=== PATIENT | male | born 2000 | race Caucasian/White ===

== ENCOUNTER 2023-04-28 09:20 | Emergency (ER) | payer OTHER, SELFPAY ==
--- NOTE | ~2023-04-28 | XR_ITS ---
EXAMINATION: XR CHEST CLINICAL INFORMATION: Near syncope looking for rib notching COMPARISON: None available. TECHNIQUE: Frontal view of the chest was obtained. FINDINGS: No significant abnormality is noted involving the heart, lungs, mediastinum, bony thorax or soft tissues. XR/XR chest 1V IMPRESSION: Unremarkable chest examination.
--- NOTE | ~2023-04-28 | CT_ITS ---
EXAMINATION: CT HEAD WITHOUT CONTRAST CLINICAL INFORMATION: Headache, confusion COMPARISON: None available. TECHNIQUE: Contiguous axial imaging was performed from the skull base to vertex without intravenous administration of contrast. This CT examination was performed using dose optimization techniques as appropriate, variously including the following: *Automated exposure control *Adjustment of mA and/or kV according to patient size (this includes techniques or standardized protocols for targeted exams where dose is matched to indication/reason for exam; i.e. extremities or head) *Use of iterative reconstruction technique DLP: 607 mGy-cm FINDINGS: The ventricles and sulci are normal in size and configuration. No acute hemorrhage, mass effect or shift is evident. Michael-white differentiation is maintained. In the posterior fossa, the brainstem, cerebellum and fourth ventricle image normally. The orbits and calvarium are intact. The paranasal sinuses and mastoid air cells are well pneumatized and clear. CT/CT head/brain wo IV con IMPRESSION: 1. Unremarkable noncontrast brain CT. No acute hemorrhage, mass effect or shift.
[2023-04-28 10:06] VITALS: BP 148/90; PULSE 94; RESP 16; TEMP 36.9; O2SAT 99; BMI 24.1
--- NOTE | 2023-04-28 10:14 | PC.NURSE ---
addendum to triage note; PERRL, no weakness noted, no facial droop. Speech clear.
--- NOTE | 2023-04-28 13:13 | ED.HA ---
HPI - Headache General Chief Complaint: Headache Stated Complaint: Headache/Dizziness/Forgetting things Time Seen by Provider: 04/28/23 13:04 Source: patient Mode of arrival: ambulatory Limitations: no limitations History of Present Illness HPI Narrative: 23-year-old male presenting with diffuse headache that is mild in nature, and earlier today had an episode of lightheadedness/dizziness followed by confusion, this is since resolved now just has a headache. Reports he had a similar episode like this back in February while he was at work it started with dizziness, lightheadedness then he got blurred vision and a headache. Today he reports he had slight blurred vision however his vision is back to normal. He reports dizziness, visual disturbances and confusion have resolved however still having mild diffuse headache (worse w/ movement). Denies weakness, chest pain, shortness of breath, fevers, chills, neck pain, nausea, vomiting, abdominal pain. Patient denies drugs/alcohol. NIH stroke scale 0. Related Data Previous Rx's Medication Instructions Recorded amlodipine 5 mg tablet 5 mg PO BID 30 days #60 tabs 04/28/23 Allergies Allergy/AdvReac Type Severity Reaction Status Date / Time nut - unspecified Allergy Anaphylaxis Verified 04/28/23 10:05 Review of Systems Review of Systems: Constitutional : No Weight loss, No Fever, No Chills, No Fatigue, No Malaise ENT/Mouth : No sore throat, No Rhinorrhea Eyes: No Eye Pain, No Swelling, No Redness Cardiovascular : No Chest Pain, No SOB, No Dyspnea on Exertion, No Orthopnea, No Edema, No Palpitations Respiratory : No Cough, No Sputum, No Wheezing Gastrointestinal : No Nausea, No Vomiting, No Diarrhea, No Constipation, No abdominal Pain, No Hematochezia, No Melena Genitourinary : No Dysuria, No Urinary Frequency, No Hematuria, Musculoskeletal : No joint pain, No Myalgias, No Joint Swelling Skin : No Skin Lesions, No rash Neuro : No Weakness, No Numbness, No Dizziness, + Headache Psych : No Anxiety/Panic, No Depression All other systems reviewed and are negative Yes all other systems are reviewed and are negative [facility] Past Medical History Attestation statement: The following information was validated with the patient. Source: old records reviewed and nursing notes reviewed Onset Date is defined in the Problem List Problems that require an onset date and time if occurred within 24 hrs of arrival to the ED Aortic Dissection and Rupture; Neurologic impairment; Cardiopulmonary Arrest; Endotracheal Intubation; Insertion or Replacement of Mechanical Circulatory Assist Device Social History Social History Smoked in Last 30 Days: No Use of substances other than those prescribed or required for medical reasons: No Advance Directives: No Physical Exam Vital Signs: Vital Signs: Last Vital Signs Temp 98.5 F 04/28/23 10:06 Pulse 94 04/28/23 10:06 Resp 16 04/28/23 10:06 BP 148/90 H 04/28/23 10:06 Pulse Ox 99 04/28/23 10:06 BMI result Body Mass Index 24.1 vss Appearance: Alert.? Oriented X3.? No acute distress.? Head: Normocephalic, atraumatic, no step-offs or deformities Eyes: Pupils equal, round and reactive to light.? Neck: Normal inspection.? Neck supple.? CVS: Normal heart rate and rhythm.? Pulses normal.? Respiratory: No respiratory distress.? Breath sounds normal.? Abdomen: Soft and nontender.? Skin: Skin warm and dry.? Normal skin color.? Normal skin turgor.? Extremities: No lower extremity edema.? No calf ttp. 5/5 strength to bilateral upper and lower extremities Back: No midline tenderness, no C-spine tenderness, full range of motion, no CVA tenderness bilaterally Neuro: Oriented X 3.? No motor deficit.? No sensory deficit. CN 2-12 intact . Normal hheaks-[id number], hgzh-tr-ckef, negative Romberg and pronator drift. NIHSS-0 Course Reevaluation(s) Reevaluation #1: CBC no acute findings. Chemistry in no acute findings requiring intervention. Troponin negative, EKG nonischemic it is showing an incomplete right bundle-branch block initially my attending was concerned this could be [facility], reach out to Cardiology, unlikely [facility] or [place]. CT head unremarkable Cardiology Dr. De Anda came down to evaluate patient he thinks that his symptoms are likely secondary to uncontrolled hypertension patient was recently started on 5 mg of amlodipine in his blood pressure remains high, he states he has had hypertension since the age of [address]. Dr[address] De Anda added aldostrone and renin levels to be done . He would like patient have an outpatient echo done, no need for hospital admission at this time he states. He would also like patient to start taking amlodipine 5 mg p.o. twice a day. Instead of once a day. Requested a cxr to be done- ordered. He checked femoral and radial pulses which were equal, unlikely coarctation of the aorta. Time: 15:17 Reevaluation #2: CXR unremarkable . Patient feeling well, asymptomatic. Would like to go home. Cardiology did not recommend keeping the patient in the hospital stated unlikely cardiac, good to be discharged home. Cardiology wants him to have an outpatient echo will give him cardiology's information. I also discussed this case with my attending Dr. Newsome who agrees patient to be discharged home. Educated patient on diagnosis and treatment plan, answered all question, patient verbalizes understanding. At this time patient will be discharged home, advised to return with new or worsening symptoms. Educated on worrisome signs and symptoms and when to return. At this time I feel comfortable discharge home. Time: 16:51 Medical Decision Making Medical Decision Making MDM Narrative: 23 yo m presents w/ episode of confusion, blurred vision which has resolved and now has a headache. HX of similar episode in the past PE benign NIHSS-0 This is likely headache versus migraine vs near syncope. Unlikely intracranial hemorrhage, stroke, posterior stroke, subarachnoid hemorrhage, ruptured aneurysm. No signs of meningitis, encephalitis, infectious origin. I do not suspect metabolic derangements. Plan at this time orthostatic vital signs, head CT. Differential Diagnosis Differential Diagnoses: The differential diagnosis associated with the presentation includes This is likely headache versus migraine vs near syncope. Unlikely intracranial hemorrhage, stroke, posterior stroke, subarachnoid hemorrhage, ruptured aneurysm. No signs of meningitis, encephalitis, infectious origin. I do not suspect metabolic derangements. Admission/Observation Consideration of admission/observation: Escalation of care including admission/observation considered Unlikely Lab Data 04/28/23 14:12 04/28/23 14:12 Labs: Lab Results 04/28/23 Range/Units 14:12 WBC 10.0 (4.8-10.8) X10*3/uL RBC 5.95 H (4.60-5.80) X10*6/uL Hgb 17.1 (14.0-18.0) g/dl Hct 49.6 (42.0-52.0) % MCV 83.4 (80.0-98.0) fL MCH 28.7 (27.0-33.0) pg MCHC 34.5 (31.0-36.0) g/dl RDW 12.9 (11.0-16.0) % Plt Count 284 (160-400) X10*3/uL MPV 10.8 (9.4-12.4) fL Immature Gran % (Auto) 0.2 (0.0-0.4) % Neut % (Auto) 61.8 (45-73) % Lymph % (Auto) 29.5 (20-40) % [place] % (Auto) 5.1 (2-11) % Eos % (Auto) 2.8 (0-4) % Baso % (Auto) 0.6 (0-2) % Lymph # (Auto) 2.9 (1.2-4.9) X10*3/uL [place] # (Auto) 0.5 (0.1-1.2) X10*3/uL Eos # (Auto) 0.3 (0.0-0.4) X10*3/uL Baso # (Auto) 0.1 (0.0-0.2) X10*3/uL Abs Immat Gran (auto) 0.02 (0.00-0.03) X10*3/uL Absolute Neuts (auto) 6.2 (2.0-8.3) x10*3/uL Absolute Nucleated RBC 0.000 (0.0-0.012) X10*3/uL Nucleated RBC % (auto) 0.0 (0.0-0.2) /100WBC PT 13.4 H (11.1-13.3) SEC INR 1.1 (0.9-1.1) Sodium 141 (135-145) mmol/L Potassium 3.3 (3.3-5.1) mmol/L Chloride 104 (96-108) mmol/L Carbon Dioxide 25 (22-29) mmol/L Anion Gap 15 (12-20) BUN 11 (9-16) mg/dL Creatinine 1.09 (0.5-1.4) mg/dL Estim Creat Clear Calc 114.6 Estimated GFR > 60 Random Glucose 100 (60-115) mg/dL Calcium 9.7 (8.4-10.2) mg/dL Magnesium 2.2 (1.6-2.6) mg/dL Total Bilirubin 0.7 (0.0-1.0) mg/dL AST 23 (5-37) U/L ALT 24 (0-40) U/L Alkaline Phosphatase 73 (39-117) U/L Troponin I High Sens < 2.7 (<3.5-35.0) ng/L Total Protein 8.2 H (6.5-8.0) g/dL Albumin 4.9 (3.5-5.0) g/dL Independent Interpretation I performed an independent interpretation of an: EKG and CT Scan Radiology Impression Discussion of test interpretation with radiology: I have reviewed the radiologist's reading. Discharge Plan Discharge Clinical Impression: Headache, Hypertension, Dizziness Patient Disposition: Home, Self-Care Instructions: Acute Headache (ED) Additional Instructions: Take your medications as prescribed. If you were prescribed antibiotics today, it is important that you take your medication to their entirety, do not skip any doses, do not finish them early. Follow-up with your primary care provider this week. Return to the emergency department with new or worsening symptoms. Such as fevers, chills, chest pain, shortness of breath, nausea, vomiting, dizziness, headache, vision changes, lethargy In case of emergency call 911 ' Take your amlodipine 5 mg now twice a day. New script sent into the pharmacy. Follow up with cardiology you will need an echo cardiogram Return with ANY new or worsening symptoms Prescriptions: New amlodipine 5 mg tablet 5 mg PO BID 30 Days Qty: 60 0RF Referrals: Willy Lowe MD [Primary Care Provider] - 2 days Maksim De Anda MD [Physician] - 1 day Stand Alone Forms: Work/School Release
--- NOTE | 2023-04-28 13:23 | ECG_ITS ---
Test Reason : DIZINESS Blood Pressure : / mmHG Vent. Rate : 073 BPM Atrial Rate : 073 BPM P-R Int : 140 ms QRS Dur : 112 ms QT Int : 376 ms P-R-T Axes : 061 057 057 degrees QTc Int : 414 ms Normal sinus rhythm with sinus arrhythmia Possible Left atrial enlargement Incomplete right bundle branch block Borderline ECG No previous ECGs available Referred By: Ti Lopez Electronically Signed By:Maksim De nAda
--- NOTE | 2023-04-28 13:34 | PC.NURSE ---
pt to CT at this time.
[2023-04-28 14:18] LABS: MANUAL DIFF FLAG NO
[2023-04-28 14:20] LABS: Basophils Absolute Auto 0.1 X10*3/uL (0.0-0.2); Basophils Percent Auto 0.6 % (0-2); Eosinophils Absolute Auto 0.3 X10*3/uL (0.0-0.4); Eosinophils Percent Auto 2.8 % (0-4); Hematocrit 49.6 % (42.0-52.0); Hemoglobin 17.1 g/dl (14.0-18.0); Imm Gran Abs Auto 0.02 X10*3/uL (0.00-0.03); Imm Gran Pct Auto 0.2 % (0.0-0.4); Lymphocytes Absolute Auto 2.9 X10*3/uL (1.2-4.9); Lymphocytes Percent Auto 29.5 % (20-40); Mean Corpuscular HGB Conc 34.5 g/dl (31.0-36.0); Mean Corpuscular Hemoglobin 28.7 pg (27.0-33.0); Mean Corpuscular Volume 83.4 fL (80.0-98.0); Mean Platelet Volume 10.8 fL (9.4-12.4); Monocytes Absolute Auto 0.5 X10*3/uL (0.1-1.2); Monocytes Percent Auto 5.1 % (2-11); Neutrophils Absolute Auto 6.2 x10*3/uL (2.0-8.3); Neutrophils Percent Auto 61.8 % (45-73); Platelet Count 284 X10*3/uL (160-400); Red Blood Count 5.95 X10*6/uL (4.60-5.80); Red Cell Distribution Width 12.9 % (11.0-16.0)
[2023-04-28 14:28] LABS: INTERNATIONAL NORM RATIO 1.1 (0.9-1.1); Prothrombin Time 13.4 SEC (11.1-13.3)
[2023-04-28 14:34] LABS: Alanine Aminotransferase 24 U/L (0-40); Albumin Level 4.9 g/dL (3.5-5.0); Alkaline Phosphatase 73 U/L (39-117); Anion Gap 15 (12-20); Aspartate Amino Transferase 23 U/L (5-37); Bilirubin Total 0.7 mg/dL (0.0-1.0); Blood Urea Nitrogen 11 mg/dL (9-16); Calcium 9.7 mg/dL (8.4-10.2); Carbon Dioxide 25 mmol/L (22-29); Chloride 104 mmol/L (96-108); Creatinine Clr Calc Pharmacy 114.6; Estimated Glomerular Filt Rate > 60; Glucose Random 100 mg/dL (60-115); Magnesium 2.2 mg/dL (1.6-2.6); Potassium 3.3 mmol/L (3.3-5.1); Sodium 141 mmol/L (135-145); Total Protein 8.2 g/dL (6.5-8.0)
[2023-04-28 14:43] LABS: Troponin-I High Sensitivity < 2.7 ng/L (<3.5-35.0)
--- NOTE | 2023-04-28 14:48 | PM.CNCAR ---
History of Present Illness History of Present Illness Date of Service: 04/28/23 Requesting physician: Ti Lopez Chief complaint: Headache/Dizziness/Forgetting things Narrative: 23-year-old gentleman who we have been asked to see for ? Brugada EKG changes. He has history of hypertension. He is saying that he has been hypertensive for quite some time and has been taking amlodipine. He is saying hypertension on in his family along with heart disease. He has been experiencing episodes of headache, dizziness and blurry vision over the last few days. He had 1st episode approximately 5 days ago while at work. 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 He is saying he drinks a lot of water and hydrate himself. He said while at work he started feeling dizzy which he describes as if his vision was blurry. He did not have any blacking out episode or true syncope. He started having a diffuse headache after that and was unable to recall names of his colleagues. He said these symptoms improved till today at home when he started feeling similar symptoms with the exception of forgetfulness. He checked his blood pressure and it was 133/70 by his report. He came to the ER for further assessment. His EKG was performed which showed incomplete right bundle-branch block with some changes suggestive of type 3 Brugada pattern. He said occasionally feels palpitations but has never had palpitations and dizziness at the same time. [facility] Social History Social History Smoked in Last 30 Days: No Use of substances other than those prescribed or required for medical reasons: No Advance Directives: No Meds Allergies Allergy/AdvReac Type Severity Reaction Status Date / Time nut - unspecified Allergy Anaphylaxis Verified 04/28/23 10:05 Physical Exam Vital Signs: Vital Signs: Last Vital Signs Temp 98.5 F 04/28/23 10:06 Pulse 94 04/28/23 10:06 Resp 16 04/28/23 10:06 BP 148/90 H 04/28/23 10:06 Pulse Ox 99 04/28/23 10:06 BMI result Body Mass Index 24.1 GENERAL APPEARANCE: in no acute distress, pleasant. NECK: no carotid bruit, no jugular venous distention. SKIN: no suspicious lesions, warm and dry. HEART: no murmurs, regular rate and rhythm. LUNGS: clear to auscultation bilaterally. ABDOMEN: soft, nontender. EXTREMITIES: no edema. PERIPHERAL PULSES: equal. NEUROLOGIC: No gross deficits, AAO X 3 Objective Labs and Meds 04/28/23 14:12 04/28/23 14:12 Lab results: Laboratory Results - last 24 hr 04/28/23 14:12 WBC 10.0 RBC 5.95 H Hgb 17.1 Hct 49.6 MCV 83.4 MCH 28.7 MCHC 34.5 RDW 12.9 Plt Count 284 MPV 10.8 Immature Gran % (Auto) 0.2 Neut % (Auto) 61.8 Lymph % (Auto) 29.5 [place] % (Auto) 5.1 Eos % (Auto) 2.8 Baso % (Auto) 0.6 Lymph # (Auto) 2.9 [place] # (Auto) 0.5 Eos # (Auto) 0.3 Baso # (Auto) 0.1 Abs Immat Gran (auto) 0.02 Absolute Neuts (auto) 6.2 Absolute Nucleated RBC 0.000 Nucleated RBC % (auto) 0.0 PT 13.4 H INR 1.1 Sodium 141 Potassium 3.3 Chloride 104 Carbon Dioxide 25 Anion Gap 15 BUN 11 Creatinine 1.09 Estim Creat Clear Calc 114.6 Estimated GFR > 60 Random Glucose 100 Calcium 9.7 Magnesium 2.2 Total Bilirubin 0.7 AST 23 ALT 24 Alkaline Phosphatase 73 Troponin I High Sens < 2.7 Total Protein 8.2 H Albumin 4.9 Imaging Radiologist's impression: Impressions Head CT 04/28/23 13:43 IMPRESSION: 1. Unremarkable noncontrast brain CT. No acute hemorrhage, mass effect or shift. Assessment and Plan (1) Headache: Status: Acute (2) Essential hypertension: Status: Acute Plan Pleasant 23-year-old gentleman presenting with dizziness, blurred vision and headache. His blood pressure is 148/90. He has known history of hypertension for long time. He is saying that he has family history of hypertension but still developed hypertension at a young age which warrants workup for secondary hypertension. I think he is blurring of vision and headache can be related to hypertension although he is not showing significantly elevated blood pressures with us currently. I do not believe that he has Brugada syndrome and his EKG changes are suggestive but not classic. I would recommend doing an echocardiogram as outpatient. Check a chest x-ray to look for changes like rib notching seen with coarctation. If blood pressure is elevated on current dose any needs titration of his blood pressure medications. Thank you for allowing me to participate in the care of your patient. Please feel free to contact me if you have any questions. Procedures Date of Service Date of Service: 04/28/23
[2023-04-28 17:12] VITALS: BP 149/95; PULSE 102; RESP 16; O2SAT 95
[2023-05-05 17:19] LABS: Aldosterone/Renin Ratio 3.3 Ratio (0.9-28.9); Plasma Renin Activity 0.92 ng/mL/h (0.25-5.82)
== END 2023-04-28 17:29 | disposition home or self-care (01) ==
PROVIDERS: Internal Medicine Cardiovascular Disease; Physician Assistant; Emergency Provider Emergency Medicine; PCP Internal Medicine
DX: R51.9 Headache, unspecified (principal); I10 Essential (primary) hypertension; R42 Dizziness and giddiness; R29.700 NIHSS score 0
CPT/HCPCS: 36415; 70450; 71045; 80053; 82088; 83735; 84484; 85025; 85610; 93005; 99284

== ENCOUNTER → 2023-04-28 13:06 | Outpatient (BNV) | payer OTHER, SELFPAY | PROVIDERS: PCP Internal Medicine; Visit Provider Internal Medicine Cardiovascular Disease | DX: I10 Essential (primary) hypertension (principal) | CPT/HCPCS: 93010; 99222 ==

== ENCOUNTER → 2023-05-22 09:41 | Outpatient (REF) | payer OTHER, SELFPAY ==
--- NOTE | 2023-05-22 09:59 | CA_ITS ---
Transthoracic Echocardiogram Patient (Last, First, Middle): Loyd Melendez T Gender: Male Date of : 2000 Age: 23 Procedure Date: 05/22/2023 Procedure Type: Transthoracic Echocardiogram Location: OP Height: 182.88 cm Weight: 81.65 kg BSA: 2.04 m2 Heart Rate: 83 bpm BP: 140 / 80 mmHg Package Line Operator: TO Referring MD: Maksim De Anda MD Symptoms: I10 - Essential (primary) hypertension Study Quality: Adequate ECG Rhythm: Sinus Conclusions: - Normal left ventricular size, thickness, systolic function, and wall motion. The visually estimated ejection fraction is between 55-60%. Diastolic function is normal for age. - Mildly increased right ventricular cavity size. There is normal right ventricular systolic function. - The left atrium is normal in size. The right atrium is normal in size. Findings Left Ventricle Normal left ventricular size, thickness, systolic function, and wall motion. The visually estimated ejection fraction is between 55-60%. Diastolic function is normal for age. Right Ventricle Mildly increased right ventricular cavity size. There is normal right ventricular systolic function. Atria The left atrium is normal in size. The right atrium is normal in size. Aortic Valve Normal aortic valve structure and function. There is no aortic valve stenosis. There is no aortic valve regurgitation. Mitral Valve Normal mitral valve structure and function. There is no mitral valve regurgitation. There is no mitral valve stenosis. Pulmonic Valve Normal pulmonic valve structure and function. There is no pulmonic valve regurgitation. Tricuspid Valve Normal tricuspid valve structure and function. There is no tricuspid valve regurgitation. Normal right atrial pressure. Great Vessels All visible segments of the aorta are normal in size. The visualized portions of the pulmonary artery and branches are normal. Venous The inferior vena cava is normal in size and collapses greater than 50% with inspiration. Pericardium/Pleural There is no evidence of pericardial effusion. Prior Study Comparison No prior study available for comparison. Measurements 2D Linear Measurements IVSd: 1.07 0.6-0.9/0.6-1.0 cm LVIDd: 4.67 3.9-5.3/4.2-5.9 cm LVIDd Index: 2.29 2.4-3.2/2.2-3.1 cm/m2 LVIDs: 2.70 2.0-3.6 cm LVPWd: 0.86 0.7-1.1 cm LA Diam: 2.80 2.7-3.8/3.0-4.0 cm LAIDs Index: 1.37 1.5-2.3 cm/m2 LV Mass: 193.35 67-162/88-224 g LV Mass Index: 94.78 43-95/49-115 g/m2 LVOT Diam: 2.40 3.0+(-)1.3 cm 2D Systolic Function EF 4C: 56.70 >55% EF 2C: 61.50 >55% EF BiP: 59.30 >55% Mitral Valve MV Pk E: 0.75 MV PK A: 0.33 MV Decel Time: 197.00 E/A: 2.30 E'Lateral: 15.00 E'Medial: 11.20 E/E' Med: 6.70 E/E' Lat: 5.00 PHT: 58.00 MVA PHT: 3.79 Decel [place]: 3.83 Aortic Valve AoV Pk Yunior: 1.19 AoV Mn Yunior: 0.74 AoV VTI: 0.20 AoV Pk Grad: 6.00 Aov Mn Grad: 3.00 YEISON Cont.VTI: 4.18 LVOT LVOT Pk Yunior: 0.93 LVOT Mn Yunior: 0.67 LVOT VTI: 0.19 LVOT Pk Grad: 3.00 LVOT Mn Grad: 2.00 LVOT Diam: 2.40 LVOT Area: 4.52 Diastolic Function MV Pk E: 0.75 MV Pk A: 0.33 E/A: 2.30 E'Medial: 11.20 E/E' Med: 6.70 E' Laterial: 15.00 E/E' Lat: 5.00 Right Ventricle TAPSE (mm): 24.30 TVS' Yunior: 14.60 Tricuspid Valve RA Press: 3.00 Great Vessels Aorta Sinus of Valsalva: 3.56 2.0-3.5 cm Ao Asc: 2.70 2.1-3.4 cm Ao Arch: 2.80 Updated in Other Vendor System with Status of Final Maksim De Anda MD electronically signed on 05/23/2023 8:33:44 PM with status of Final
== END ==
LOC: HO.CARD 09:41
PROVIDERS: PCP Internal Medicine; Visit Provider Internal Medicine Cardiovascular Disease
DX: I10 Essential (primary) hypertension (principal)
CPT/HCPCS: 93306

== ENCOUNTER → 2023-05-22 09:59 | Outpatient (BNV) | payer OTHER, SELFPAY | PROVIDERS: PCP Internal Medicine; Visit Provider Internal Medicine Cardiovascular Disease | DX: I10 Essential (primary) hypertension (principal) | CPT/HCPCS: 93306 ==

== ENCOUNTER 2024-12-17 05:59 | Emergency (ER) | payer OTHER, SELFPAY ==
[2024-12-17 06:18] VITALS: BP 156/83; PULSE 70; RESP 18; TEMP 36.7; O2SAT 98; BMI 23.5
--- OUTSIDE RECORDS SUMMARY | 2024-12-17 06:56 | XMS_ITS ---
Author Name [facility] Organization Unknown Care Team Organization Name Specialty Phone Email Start Date End Da te [facility] 11/12/2023 02/03/20 [facility] 04/08/2023 12/14/19 23
--- NOTE | 2024-12-17 07:12 | ED.WOUNDLAC ---
HPI - Wound/Laceration General Chief Complaint: Wound/Laceration Stated Complaint: lac @ work Time Seen by Provider: 12/17/24 07:10 Source: patient Mode of arrival: ambulatory Limitations: no limitations History of Present Illness ED Provider: Dr. Melida Mittal HPI narrative: Patient comes to the emergency room complaining of a laceration to the base of the 5th digit on the left hand. Patient was at work, laceration occurred with a steel plate. According to the patient, he is not sure if he is up-to-date with his Tdap. Patient requesting a Tdap booster Related Data Previous Rx's ?Medication ?Instructions ?Recorded amlodipine 5 mg tablet 5 mg PO BID 30 days #60 tabs 04/28/23 Allergies Allergy/AdvReac Type Severity Reaction Status Date / Time nut - unspecified Allergy Anaphylaxis Verified 12/17/24 06:20 Review of Systems Review of Systems: Constitutional : No Weight loss, No Fever, No Chills, No Night Sweats, No Fatigue, No Malaise ENT/Mouth : No Hearing loss, No Ear Pain, No Nasal Congestion, No Sinus Pain, No Hoarseness, No sore throat, No Rhinorrhea, No Swallowing Difficulty Eyes: No Eye Pain, No Swelling, No Redness, No Foreign Body, No Discharge, No Vision Changes Cardiovascular : No Chest Pain, No SOB, No Dyspnea on Exertion, No Orthopnea, No Edema, No Palpitations Respiratory : No Cough, No Sputum, No Wheezing, No Smoke Exposure, No Dyspnea Gastrointestinal : No Nausea, No Vomiting, No Diarrhea, No Constipation, No abdominal Pain, No Hematochezia, No Melena Genitourinary : no irregular bleeding, No Dysuria, No Urinary Frequency, No Hematuria, No Urinary Incontinence, No Urgency, No Flank Pain, No Urinary Flow Changes, No Hesitancy Musculoskeletal : No joint pain, No Myalgias, No Joint Swelling Skin : Complaining of a laceration to the base of the pinky finger palmar aspect Neuro : No Weakness, No Numbness, No Paresthesias, No Loss of Consciousness, No Dizziness, No Headache Psych : No Anxiety/Panic, No Depression, No SI/HI/AH/VH, No Social Issues, Heme/Lymph: No Bruising, No Bleeding,No Lymphadenopathy Endocrine : No Polyuria, No Polydipsia, No Temperature Intolerance [facility] Social History Social History Advance Directives: No Advance Directives Information Provided: Yes Physical Exam Exam: Exam: Appearance: Alert. Oriented X3. No acute distress. Eyes: Pupils equal, round and reactive to light. ENT: Pharynx normal. Neck: Normal inspection. Neck supple. No lymph nodes noted. No crepitus CVS: Normal heart rate and rhythm. Pulses normal. Normal S1 and S2 Respiratory: No respiratory distress. Breath sounds normal. No Wheezing. No rales Abdomen: Soft and nontender. No rigidity. No distention. Skin: Skin warm and dry. Normal skin color. Normal skin turgor. On the base of the 5th digit of the left hand, patient has a 5 mm laceration. Patient's is able to flex and extend the fingers with no difficulty with normal range of motion. Extremities: No lower extremity edema. No Lacerations. No Rash Neuro: Oriented X 3. No motor deficit. No sensory deficit. Moving all extremities. No slurred speech. CN 2 through 12 grossly intact Psych: calm, cooperative, normal affect Vital Signs: Vital Signs: Last Vital Signs Temp 98.0 F 12/17/24 06:18 Pulse 70 12/17/24 06:18 Resp 18 12/17/24 06:18 BP 156/83 H 12/17/24 06:18 Pulse Ox 98 12/17/24 06:18 O2 Del Method Room Air 12/17/24 06:18 BMI result Body Mass Index 23.5 Medical Decision Making Medical Decision Making MDM Narrative: Patient received 3 stitches with 5 0 suture Tdap booster given. Patient tolerated well the procedure Procedures Laceration Laceration 1: Site: hand Side (If applicable): left Size (cm): 0.5 Description: linear and flap Depth: simple, single layer Local Anesthetic: lidocaine 1% Amount of anesthesia used (mL): 1 Pre-repair: wound explored Skin layer closed with: nylon Size (cm): 5-0 Number of sutures: 3 Technique: simple, interrupted Discharge Plan Discharge Clinical Impression: Laceration Patient Disposition: Home, Self-Care Instructions: Laceration (ED), Care For Your Stitches (ED) Additional Instructions: Your stitches need to be removed in 7-10 days. If you see any signs of infection such as pus drainage, redness, pain out of proportion, please return to the emergency room. The stitches may be removed at an urgent Care, here in the emergency room or with the your primary care physician. Please follow-up with your primary care physician tomorrow. If you have any worsening or new symptoms, please return to the emergency room or call 911 Prescriptions: No Action amlodipine 5 mg tablet 5 mg PO BID 30 Days Qty: 60 0RF Stand Alone Forms: Work/School Release Print Language: Lao
[2024-12-17 07:21] VITALS: BP 137/90; PULSE 69; RESP 18; O2SAT 100
[2024-12-17] MEDS: Diphth,Pertus(ACell),Tet Adult 0.5 ML SYRINGE IM (07:22)
[2024-12-17 07:26] VITALS: BP 137/90; PULSE 69; RESP 18; TEMP 36.7; O2SAT 100
== END 2024-12-17 07:27 | disposition home or self-care (01) ==
PROVIDERS: Emergency Provider Emergency Medicine
DX: S61.217A Laceration without foreign body of left little finger without damage to nail, initial encounter (principal); W26.9XXA Contact with unspecified sharp object(s), initial encounter; Y93.9 Activity, unspecified; Y92.9 Unspecified place or not applicable; Y99.0 Civilian activity done for income or pay; Z23 Encounter for immunization
CPT/HCPCS: 12001; 90471; 90715; 99282; 99284